=== PATIENT | male | born 1985 | race Caucasian/White ===

== ENCOUNTER 2023-08-08 07:57 | Emergency (ER) | payer OTHER ==
[~2023-08-08] VITALS: Ht 177.8 cm; Wt 99.8 kg
[2023-08-08] MEDS ORDERED: FAMOtidine 10 MG/ML (4ML VIAL) IV STA (09:21)
[2023-08-08 10:08] LABS: HEMATOCRIT 51.3 % (39.0-48.0); HEMOGLOBIN 17.4 g/dL (13-16.00); MEAN CELL VOLUME 85.7 fL (80.0-100.00); MEAN CORPUSCULAR HEMOGLOBIN 29.1 pg (27.00-32.0); MEAN CORPUSCULAR HGB CONC 33.9 g/dl (32.0-36.0); PLATELET COUNT 357 K/uL (150-450); RED BLOOD COUNT 5.98 M/uL (4.00-6.00); RED CELL DISTRIBUTION WIDTH 13.1 % (11.5-14.5)
[2023-08-08 10:09] LABS: URINE APPEARANCE Clear; URINE BILIRRUBIN Negative (NEGATIVE); URINE BLOOD Negative; URINE COLOR Dark Yellow; URINE GLUCOSE Negative (NEGATIVE); URINE LEUKOCYTE Trace; URINE NITRATE Negative; URINE PROTEIN Trace (NEGATIVE); URINE UROBILINOGEN 0.2 E.U./dl
[2023-08-08 10:13] LABS: URINE BACTERIA 12.5 uL (0.0-1933); URINE EPITHELIAL CELLS 1.6 uL (0.0-38.8); URINE RBC 5.3 uL (0.0-20.8); URINE WBC 6.6 uL (0.0-23.2)
[2023-08-08 10:26] LABS: ALBUMIN 3.9 gm/dL (3.4-5.0); ALKALINE PHOSPHATASE 99 U/L (50-136); ALT/SGPT 30 U/L (12-78); ANION GAP 11 (10.0-20.0); AST/SGOT 27 U/L (15-37); BILIRUBIN TOTAL 0.53 mg/dL (0.3-1.2); BLOOD UREA NITROGEN 17 mg/dL (7-18); BUN CREA RATIO 15 (7.0-25.0); CALCIUM 9.8 mg/dL (8.5-10.1); CARBON DIOXIDE 31 mEq/L (21-32); CHLORIDE 101 mmol/L (98-107); CREATININE SERUM 1.17 mg/dL (0.70-1.30); GFR 70.54; GLUCOSE FASTING 98 mg/dL (65-100); OSMOLALITY SERUM 279 MOSM/KG (275-295); POTASSIUM 4.23 mEq/L (3.5-5.1); SODIUM 139 mmol/L (136-145)
[2023-08-08 10:27] LABS: BILIRUBIN,CONJUGATED < 0.05 mg/dL (0.0-0.2); BILIRUBIN,UNCONJUGATED 0.48 mg/dL (0.0-0.6)
== END 2023-08-08 13:42 | disposition home or self-care (01) ==
LOC: ER 07:57
PROVIDERS: General Practice
DX: K29.60 Other gastritis without bleeding (principal)